=== PATIENT | female | born 1995 | race Caucasian/White ===

== ENCOUNTER 2018-08-21 18:37 | Emergency (ER) | payer OTHER ==
[2018-08-21 18:45] VITALS: BP 110/66; PULSE 75; RESP 18; TEMP 97.8
[2018-08-21] MEDS ORDERED: AMOXICILLIN 500 MG CAP PO STA (18:56)
--- NOTE | 2018-08-21 19:05 | ED ---
General Adult HPI - General Chief complaint: ENT Stated complaint: Sore Throat Time Seen by Provider: 08/21/18 18:47 Source: patient, RN notes reviewed, old records reviewed Mode of arrival: ambulatory Limitations: no limitations - History of Present Illness Initial comments: 23-year-old female patient, fully vaccinated, no pertinent past medical history presents to ED with 1 day of sore throat. Patient states that there is no chance that she could be . Patient states that she can see exudates in her posterior pharynx, states that she feels as if she has strep throat. Patient denies any other complaints. Denies any chest pain shortness with abdominal pain cough congestion nausea vomiting or diarrhea. Systemic: Pt denies fatigue, fever/chills, rash. Pt denies weakness, night sweats, weight loss. Neuro: Pt denies headache, visual disturbances, syncope or pre-syncope. HEENT: Pt denies ocular discharge or irritation, otalgia, rhinorrhea. Cardiopulmonary: Pt denies chest pain, SOB, heart palpitations, dyspnea on exertion. Abdominal/GI: Pt denies abdominal pain, n/v/d. : Pt denies dysuria, burning w/ urination, frequency/urgency. Denies new onset urinary or bowel incontinence. MSK: Pt denies myalgia, loss of strength or function in extremities. Neuro: Pt denies new onset weakness, paresthesias. - Related Data Previous Rx's Medication Instructions Recorded Amoxicillin 500 mg PO Q12HR 10 Days #20 day 08/21/18 Allergies Allergy/AdvReac Type Severity Reaction Status Date / Time No Known Allergies Allergy Verified 08/21/18 18:45 Review of Systems ROS Statement: Those systems with pertinent positive or pertinent negative responses have been documented in the HPI. ROS Other: All systems not noted in ROS Statement are negative. Past Medical History Past Medical History: No Reported History History of Any Multi-Drug Resistant Organisms: None Reported Past Surgical History: No Surgical Hx Reported Past Psychological History: No Psychological Hx Reported Smoking Status: Never smoker Past Alcohol Use History: Occasional Past Drug Use History: Marijuana General Exam - General Exam Comments Initial Comments: Constitutional: NAD, AOX3, Pt has pleasant affect. HEENT: NC/AT, trachea midline, neck supple. Posterior pharynx mildly erythematous, +1 tonsils with exudates. Mild posterior cervical lymphadenopathy noted. External ears appear normal, without discharge. Mucous membranes moist. Eyes PERRLA, EOM intact. There is no scleral icterus. No pallor noted. Cardiopulmonary: RRR, no murmurs, rubs or gallops, no JVD noted. Lungs CTAB in anterior and posterior cha. No peripheral edema. Abdominal exam: Abdomen soft and non-distended. Abdomen non-tender to palpation in all 4 quadrants. Bowel sounds active in LLQ. No hepatosplenomegaly. No ecchymosis Neuro: CN II-XII grossly intact. No nuchal rigidity. No raccon eyes, no obando sign, no hemotympanum. No cervical spinal tenderness. MSK: No posterior calf tenderness bilaterally, homans sign negative bilaterally. Posterior tibialis and radial pulse +2 bilaterally. Sensation intact in upper and lower extremities. Full active ROM in upper and lower extremities, 5/5 stregnth. Limitations: no limitations Course Vital Signs 08/21/18 18:43 Temperature 97.8 F Pulse Rate 75 Respiratory 18 Rate Blood Pressure 110/66 O2 Sat by Pulse 100 Oximetry Medical Decision Making - Medical Decision Making 23-year-old female patient, no pertinent past medical history presents to ED with 1 day of sore throat. Patient vital signs stable, afebrile. Physical exam displayed: Posterior pharynx mildly erythematous, +1 tonsils with exudates. Mild posterior cervical lymphadenopathy noted. Shared decision making, patient preferred to be empirically treated will defer strep swab. Patient administered 1 dose of amoxicillin. Patient discharged with prescription for amoxicillin. Patient to follow up with primary care provider in 1-2 days. Patient return to ER if condition worsens in any way. Case discussed with Dr. Rosales. Disposition Clinical Impression: Sore throat, Pharyngitis Disposition: HOME SELF-CARE Condition: Stable Instructions (If sedation given, give patient instructions): Pharyngitis (ED) Additional Instructions: Patient to adhere to previously discussed treatment plan and will take medication(s) as directed. Patient to follow up with PCP in 1-2 days. Patient to return to ED if symptoms do not improve. Take medication as directed. Follow up with primary care provider in 1-2 days. Return to ER if condition worsens. Prescriptions: Amoxicillin 500 mg PO Q12HR 10 Days #20 day Is patient prescribed a controlled substance at d/c from ED?: No Referrals: Nonstaff,Physician [Primary Care Provider] - 1-2 days
== END 2018-08-21 19:22 | disposition home or self-care (01) ==
LOC: EC 18:37
DX: J02.9 Acute pharyngitis, unspecified (principal)
CPT/HCPCS: 99283